=== PATIENT | male | born 1980 | race Caucasian/White ===

== ENCOUNTER 2019-08-17 14:47 | Outpatient (CLI) | payer SELFPAY ==
--- NOTE | 2019-08-17 14:52 | USCV_ITS ---
Franklyn Crowder Age: 38 Gender: M : 1980 Exam Date: 08/17/2019 15:11 Ordering Phys: Janusz Cole DO Technologist: Iesha Lew Exam Location: [facility] [place] Indication: LEG PAIN HISTORY: Lower extremity pain. PROCEDURES: Venous duplex imaging was performed in only the right lower extremity. The following venous structures were evaluated: common femoral vein, profunda vein, proximal portion of the greater saphenous vein, superficial femoral vein, and the popliteal vein. In addition, the posterior tibial and peroneal trunk were evaluated. Serial compression, augmentation maneuvers, and spectral Doppler flow evaluation were performed. FINDINGS: Normal 2-D Doppler and augmentation and compressibility throughout the lower extremity venous structures. Additional imaging through the proximal calf veins also reveals no thrombus. Limited evaluation of the greater saphenous vein is patent with no thrombus. CONCLUSIONS No DVT right lower extremity. Dr. Kristi Montaño DO (Electronically Signed) Final Date: 17 August 2019 15:36 S
== END 2019-08-17 14:48 | disposition home or self-care (01) ==
LOC: RAD 14:49
PROVIDERS: Family Provider Internal Medicine; PCP Internal Medicine; Visit Provider Family Medicine
DX: M79.604 Pain in right leg (principal)
CPT/HCPCS: 93971

== ENCOUNTER 2023-03-31 16:11 | Emergency (ER) | payer SELFPAY ==
[2023-03-31 16:21] VITALS: BP 126/92; PULSE 85; RESP 18; TEMP 37.1; O2SAT 96; BMI 29.9
--- NOTE | 2023-03-31 16:31 | W.ED.EXTPRO ---
HPI - Extremity Problem General: Chief complaint: Extremity Problem,Nontraumatic Stated complaint: left leg pain Time Seen by Provider: 03/31/23 16:14 Source: patient Mode of arrival: ambulatory Limitations: no limitations History of Present Illness: Patient is a nice 42-year-old male who presents to ED today with complaint of pain to his left calf that he began noticing yesterday/today. He noticed a small red area that made him concerned for possible blood clot. Patient states 14 years ago he had a superficial thrombus to the right leg. He states 7 years ago he was diagnosed with a DVT to the right leg and placed on anticoagulation. Patient denies any recent surgeries or periods of prolonged inactivity. Recent injury, trauma, or infection. Denies chest pain or shortness of breath. MD Complaint: extremity pain Onset (ago): day(s) Pain Consistency: constant Location: left and lower extremity Radiation: none Relieving factors: nothing Exacerbating factors: nothing Associated symptoms: Reports no associated symptoms; Deny chest pain or fever(s) Context: history of DVT Review of Systems Const: Denies: fever(s), chills, body aches, fatigue or malaise Card: Denies: chest pain Resp: Denies: dyspnea Musc: Reports: extremity pain (small area to L lower leg/calf); Denies: neck pain, back pain, extremity swelling, joint pain, joint swelling, joint redness, joint warmth or limited range of motion Neuro: Denies: numbness in extremities, weakness in extremities or sensory changes Physical Exam Const: COMMON NORMALS: no acute distress, average body habitus, no limitations, healthy appearing, alert and well nourished Resp: COMMON NORMALS: normal respiratory effort and clear to auscultation bilaterally AUSCULTATION: clear to auscultation bilaterally Cardio: COMMON NORMALS: regular rate and regular rhythm RATE: regular rate RHYTHM: regular rhythm Extremity: COMMON NORMALS: full ROM, capillary refill normal, no joint enlargement, no clubbing, cyanosis or edema, no calf tenderness and no pedal edema GENERAL: Yes normal exam except as noted LEFT LOWER EXTREMITY: Yes lower leg OTHER: pt has about a 2 inch long palpable cord to L posterior calf most consistent with superficial thrombophelbitis; no diffuse calf pain/swelling; negative Bentley's; no edema; NV intact Neuro: COMMON NORMALS: moves all extremities, no focal motor deficits and no sensory deficits noted SENSORIUM/ORIENTATION: Yes alert Course Vital Signs: Vital signs: Vital Signs Temperature 98.7 F 03/31/23 16:21 Pulse Rate 85 03/31/23 16:21 Respiratory Rate 18 03/31/23 16:21 Blood Pressure 126/92 03/31/23 16:21 Pulse Oximetry 96 03/31/23 16:21 Oxygen Delivery Me thod Room Air 03/31/23 16:21 MDM - Extremity (Nontraumatic) Medical Decision Making Spoke to [employer] [facility], who indicated patient does have a large (>5cm) superficial thrombus to his SSV. This is within close proximity to the saphenous popliteal junction thus he will be treated with anticoagulation. Recommend follow-up with PCP in approximately 2 weeks for re-evaluation. Strict return ED precautions given. XR interpretation done by ED provider, pending radiology final review (pend official radiology report; prelim by Adriane/[facility] bay) Discharge Plan Discharge Patient Disposition: Home Clinical Impression: Acute superficial venous thrombosis of left lower extremity Condition: Stable Prescriptions: New Eliquis 5 mg tablet 5 mg PO BID Qty: 74 0RF Rx Instructions: Take two tabs (10mg) PO BID x 7 days then one tab (5mg) PO BID thereafter Discharge Orders: Discharge ED (Routine); Ordered 03/31/23 Ordered By: Becky Richardson Referrals: Janusz Cole DO [Primary Care Provider] - Patient Instructions: Superficial Thrombophlebitis (ED) Activity Restrictions/Additional Instructions: As we discussed you were found to have a large superficial thrombus in your left leg. Will be placed on anticoagulation for this. Please follow-up with your primary care provider in approximately 2 weeks for reevaluation. You need to return to the emergency department for worsening leg pain, severe calf pain or swelling, any chest pain, shortness of breath, difficulty breathing, or any other concerns you may have. Coding Level of Care Code ED [employer] for [employer]elida Yang
--- NOTE | 2023-03-31 16:35 | USR_ITS ---
PROCEDURE INFORMATION: Exam: US Duplex Left Lower Extremity Veins, Limited Exam date and time: 03/31/2023 4:55 PM Age: 42 years old Clinical indication: Pain; Leg, lower; Left; Patient HX: History of dvt and superficial thrombus in RT leg. Today red warm area medial lower leg near pop on lt. ; Additional info: Tender palpable cord L calf TECHNIQUE: Imaging protocol: Real-time duplex ultrasound of the left extremity with 2-D chang scale, color Doppler flow and spectral waveform analysis including responses to compression and other maneuvers (when performed) with image documentation. Limited exam focused on the left lower extremity veins. COMPARISON: No relevant prior studies available. FINDINGS: Left deep veins: Unremarkable. The common femoral, femoral, proximal profunda femoral, popliteal, posterior tibial and peroneal veins are patent without thrombus. Normal compressibility, augmentation response and Doppler waveforms. Superficial veins: Thrombosed superficial branch of the lesser saphenous vein. Saphenofemoral junction is patent without thrombus. Soft tissues: Mild subcutaneous edema. US/CV venous duplex [facility] [id number] IMPRESSION: 1. No sonographic evidence of deep vein thrombosis. 2. Thrombosed superficial branch of the lesser saphenous vein.
[2023-03-31 17:38] VITALS: PULSE 98
== END 2023-03-31 17:38 | disposition home or self-care (01) ==
PROVIDERS: Emergency Provider Physician Assistant; PCP Family Medicine
DX: I82.812 Embolism and thrombosis of superficial veins of left lower extremity (principal)
CPT/HCPCS: 93971; 99284